=== PATIENT | male | born 1950 | race Native Hawaiian/Other Pacific Islander ===

== ENCOUNTER 2016-11-10 01:45 | Emergency (ER) | payer OTHER, MEDICARE ==
[2016-11-10 03:25] LABS: Appearance,Urine Cloudy (Clear); Bilirubin,Urine 1+ (Negative); Glucose,Urine (UA) 1+ (Negative); Leukocyte Esterase,Urine Large (Negative); Mucus,Urine Occasional /hpf; Nitrite,Urine Negative (Negative); PH, Urine 5.5 (5.0-8.0); Particle Count 12615; Protein,Urine 3+ (Negative); RBC,Urine 123 /hpf (0-5); Specific Gravity,Urine 1.024 (1.001-1.035); Squamous Epithelial Cell,Urine <1 /hpf (0-4); UA Billing (MACRO vs. MICRO) MICRO; WBC,Urine >182 /hpf (0-5)
[2016-11-10 03:29] LABS: Ketones,Urine 2+ (Negative)
[2016-11-10] MEDS ORDERED: LEVOFLOXACIN 750 MG TAB PO STA (03:40)
--- NOTE | 2016-11-10 03:42 | ED ---
Male Urogenital HPI - General Chief complaint: Urogenital Stated complaint: pain urinating Time Seen by Provider: 11/10/16 02:21 Source: patient Mode of arrival: ambulatory Limitations: no limitations - Related Data Previous Rx's Medication Instructions Recorded Ciprofloxacin HCl [Cipro] 500 mg PO Q12HR #28 tablet 11/10/16 Allergies Allergy/AdvReac Type Severity Reaction Status Date / Time No Known Allergies Allergy Verified 11/10/16 01:55 Review of Systems ROS Statement: Those systems with pertinent positive or pertinent negative responses have been documented in the HPI. ROS Other: All systems not noted in ROS Statement are negative. 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 History of Any Multi-Drug Resistant Organisms: None Reported Past Surgical History: Cholecystectomy, Coronary Bypass/CABG Past Psychological History: No Psychological Hx Reported Smoking Status: Never smoker Past Alcohol Use History: None Reported Past Drug Use History: None Reported General Exam Limitations: no limitations Course Vital Signs 11/10/16 11/10/16 11/10/16 01:50 03:52 05:00 Temperature 98.2 F 102.5 F H 100.2 F H Pulse Rate 140 H 121 H 113 H Respiratory 18 18 16 Rate Blood Pressure 135/91 161/92 140/76 O2 Sat by Pulse 98 96 Oximetry Medical Decision Making - Lab Data Result diagrams: 11/10/16 04:00 11/10/16 04:00 Lab Results 11/10/16 11/10/16 11/10/16 Range/Units 02:25 04:00 04:00 WBC 16.9 H (3.8-10.6) k/uL RBC 5.42 (4.30-5.90) m/uL Hgb 16.2 (13.0-17.5) gm/dL Hct 45.1 (39.0-53.0) % MCV 83.2 (80.0-100.0) fL MCH 29.8 (25.0-35.0) pg MCHC 35.8 (31.0-37.0) g/dL RDW 13.5 (11.5-15.5) % Plt Count 173 (150-450) k/uL Neutrophils % 88 % Lymphocytes % 5 % Monocytes % 4 % Eosinophils % 1 % Basophils % 0 % Neutrophils # 14.9 H (1.3-7.7) k/uL Lymphocytes # 0.9 L (1.0-4.8) k/uL Monocytes # 0.7 (0-1.0) k/uL Eosinophils # 0.2 (0-0.7) k/uL Basophils # 0.0 (0-0.2) k/uL PT (9.0-12.0) sec INR (<1.1) APTT (22.0-30.0) sec Sodium 137 (137-145) mmol/L Potassium 3.8 (3.5-5.1) mmol/L Chloride 99 (98-107) mmol/L Carbon Dioxide 23 (22-30) mmol/L Anion Gap 15 mmol/L BUN 18 (9-20) mg/dL Creatinine 1.20 (0.66-1.25) mg/dL Est GFR (MDRD) Af Amer >60 (>60 ml/min/1.73 sqM) Est GFR (MDRD) Non-Af >60 (>60 ml/min/1.73 sqM) Glucose 191 H (74-99) mg/dL Plasma Lactic Acid Rupesh (0.7-2.0) mmol/L Calcium 9.2 (8.4-10.2) mg/dL Total Bilirubin 2.6 H (0.2-1.3) mg/dL AST 21 (17-59) U/L ALT 26 (21-72) U/L Alkaline Phosphatase 87 (38-126) U/L Total Protein 7.4 (6.3-8.2) g/dL Albumin 4.1 (3.5-5.0) g/dL Urine Color Light Brown Urine Appearance Cloudy (Clear) Urine pH 5.5 (5.0-8.0) Ur Specific Zillah 1.024 (1.001-1.035) Urine Protein 3+ H (Negative) Urine Glucose (UA) 1+ H (Negative) Urine Ketones 2+ H (Negative) Urine Blood Moderate H (Negative) Urine Nitrite Negative (Negative) Urine Bilirubin 1+ H (Negative) Urine Urobilinogen 4.0 (<2.0) mg/dL Ur Leukocyte Esterase Large H (Negative) Urine RBC 123 H (0-5) /hpf Urine WBC >182 H (0-5) /hpf Urine WBC Clumps Occasional H (None) /hpf Ur Squamous Epith Cells <1 (0-4) /hpf Urine Mucus Occasional H (None) /hpf 11/10/16 11/10/16 Range/Units 04:00 04:00 WBC (3.8-10.6) k/uL RBC (4.30-5.90) m/uL Hgb (13.0-17.5) gm/dL Hct (39.0-53.0) % MCV (80.0-100.0) fL MCH (25.0-35.0) pg MCHC (31.0-37.0) g/dL RDW (11.5-15.5) % Plt Count (150-450) k/uL Neutrophils % % Lymphocytes % % Monocytes % % Eosinophils % % Basophils % % Neutrophils # (1.3-7.7) k/uL Lymphocytes # (1.0-4.8) k/uL Monocytes # (0-1.0) k/uL Eosinophils # (0-0.7) k/uL Basophils # (0-0.2) k/uL PT 13.6 H (9.0-12.0) sec INR 1.4 (<1.1) APTT 25.8 (22.0-30.0) sec Sodium (137-145) mmol/L Potassium (3.5-5.1) mmol/L Chloride (98-107) mmol/L Carbon Dioxide (22-30) mmol/L Anion Gap mmol/L BUN (9-20) mg/dL Creatinine (0.66-1.25) mg/dL Est GFR (MDRD) Af Amer (>60 ml/min/1.73 sqM) Est GFR (MDRD) Non-Af (>60 ml/min/1.73 sqM) Glucose (74-99) mg/dL Plasma Lactic Acid Rupesh 2.0 (0.7-2.0) mmol/L Calcium (8.4-10.2) mg/dL Total Bilirubin (0.2-1.3) mg/dL AST (17-59) U/L ALT (21-72) U/L Alkaline Phosphatase (38-126) U/L Total Protein (6.3-8.2) g/dL Albumin (3.5-5.0) g/dL Urine Color Urine Appearance (Clear) Urine pH (5.0-8.0) Ur Specific Zillah (1.001-1.035) Urine Protein (Negative) Urine Glucose (UA) (Negative) Urine Ketones (Negative) Urine Blood (Negative) Urine Nitrite (Negative) Urine Bilirubin (Negative) Urine Urobilinogen (<2.0) mg/dL Ur Leukocyte Esterase (Negative) Urine RBC (0-5) /hpf Urine WBC (0-5) /hpf Urine WBC Clumps (None) /hpf Ur Squamous Epith Cells (0-4) /hpf Urine Mucus (None) /hpf Disposition Clinical Impression: Prostatitis Disposition: HOME SELF-CARE Condition: Good Instructions: Prostatitis (ED) Prescriptions: Ciprofloxacin HCl [Cipro] 500 mg PO Q12HR #28 tablet Referrals: Wei Dukes DO [Primary Care Provider] - 1-2 days
[2016-11-10] MEDS ORDERED: ACETAMINOPHEN TAB 325 MG TAB PO STA (03:57)
[2016-11-10] MEDS ORDERED: SODIUM CHLORIDE 0.9% 2,000 ML IV STA (03:58)
[2016-11-10] MEDS ORDERED: IBUPROFEN 600 MG TAB PO STA (03:58)
[2016-11-10 04:12] LABS: Basophils % (A) 0 %; CHCM 36.2; Eosinophils # (A) 0.2 k/uL (0-0.7); Eosinophils % (A) 1 %; HCT 45.1 % (39.0-53.0); HDW 2.87; HGB 16.2 gm/dL (13.0-17.5); Luc # (Auto) 0.12; Luc % (Auto) 1; Lymphocytes # (A) 0.9 k/uL (1.0-4.8); Lymphocytes % (A) 5 %; MCH 29.8 pg (25.0-35.0); MCHC 35.8 g/dL (31.0-37.0); MCV 83.2 fL (80.0-100.0); Mean Platelet Volume 6.8; Monocytes # (A) 0.7 k/uL (0-1.0); Monocytes % (A) 4 %; Neutrophils # (A) 14.9 k/uL (1.3-7.7); Neutrophils % (A) 88 %; RBC 5.42 m/uL (4.30-5.90); RDW 13.5 % (11.5-15.5); WBC 16.9 k/uL (3.8-10.6); WBC (Perox) 15.93
[2016-11-10 04:21] LABS: INR 1.4 (<1.1); Partial Thromboplastin Time 25.8 sec (22.0-30.0); Prothrombin Time 13.6 sec (9.0-12.0)
[2016-11-10 04:23] LABS: ALT 26 U/L (21-72); AST 21 U/L (17-59); Alkaline Phosphatase 87 U/L (38-126); Anion Gap 15 mmol/L; Blood Urea Nitrogen 18 mg/dL (9-20); Calcium 9.2 mg/dL (8.4-10.2); Carbon Dioxide 23 mmol/L (22-30); Chloride 99 mmol/L (98-107); Glucose 191 mg/dL (74-99); Non-African American GFR(MDRD) >60 (>60 ml/min/1.73 sqM); Potassium 3.8 mmol/L (3.5-5.1); Sodium 137 mmol/L (137-145); Total Bilirubin 2.6 mg/dL (0.2-1.3); Total Protein 7.4 g/dL (6.3-8.2)
[2016-11-10 05:33] VITALS: RESP 16
[2016-11-10 06:06] VITALS: BP 132/63; PULSE 98; TEMP 99.3
== END 2016-11-10 06:20 | disposition home or self-care (01) ==
LOC: EC 01:45
DX: N41.9 Inflammatory disease of prostate, unspecified (principal)
CPT/HCPCS: 36415; 80053; 81001; 83605; 85025; 85610; 85730; 87040; 87077; 87086; 87186; 93005; 96360; 96361; 99283